=== PATIENT | male | born 1985 | race African-American/Black ===

== ENCOUNTER 2021-03-12 20:24 | Emergency (ER) | payer MEDICAID ==
[~2021-03-12] VITALS: Ht 180.3 cm; Wt 100.0 kg
[~2021-03-12 20:24] MED LIST: MOTRIN
[2021-03-12] MEDS ORDERED: AMOX-494 MT (21:07)
[2021-03-12] MEDS ORDERED: DEXAMETHASONE 10 MG/ML VIAL IM ONE (21:15)
[2021-03-12 21:20] VITALS: BP 127/74
== END 2021-03-12 22:02 | disposition home or self-care (01) ==
LOC: ER 20:24
DX: H66.92 Otitis media, unspecified, left ear (principal); F12.10 Cannabis abuse, uncomplicated
CPT/HCPCS: 96372; 99283; J1100